=== PATIENT | female | born 1975 | race Two or more races ===

== ENCOUNTER 2024-04-26 10:15 | Inpatient (IN) | payer OTHER ==
[~2024-04-26] VITALS: Ht 154.9 cm; Wt 65.8 kg
[2024-04-27] MEDS ORDERED: SYNTHROID125 MCG PO (11:26)
[2024-04-27] MEDS ORDERED: EFFEXOR XR37.5 MG PO (11:27)
[2024-04-27] MEDS ORDERED: AVAPRO150 MG PO (11:28)
[2024-04-27] MEDS ORDERED: TOPROL XL25 M1 PO (11:28)
[2024-04-27] MEDS ORDERED: VIENVA-28 TABL1 EACH (11:29)
[2024-04-27 11:32] VITALS: BP 127/75
[2024-04-27 13:02] LABS: RH POSITIVE
[2024-05-03] MEDS ORDERED: METRONIDAZOLE/SODIUM CHLORIDE 500 MG/100 ML PIGGYBACK IV ONE (10:30)
[2024-05-03] MEDS ORDERED: BUPIVACAINE HCL 30 ML VIAL IJ ONE (10:30)
[2024-05-03] MEDS ORDERED: THROMBIN,HU/FIBRINOGEN/CALCIUM 10 ML SYRINGE TOP ONE (10:30)
[2024-05-03] MEDS ORDERED: VISTASEAL DUAL APPICATOR 1 EACH APPL TOP ONE (10:30)
[2024-05-03] MEDS ORDERED: CEFTRIAXONE SODIUM 2,000 MG VIAL IV ONE (10:30)
[2024-05-03] MEDS ORDERED: LIDOCAINE HCL 1% 20 ML VIAL IJ ONE (10:30)
[2024-05-03] MEDS ORDERED: POVIDONE-IODINE 118 ML BOTT TOP ONE (10:30)
[2024-05-03] MEDS ORDERED: SUGAMMADEX SODIUM 200 MG/2 ML VIAL IV ONE (12:15)
[2024-05-03] MEDS ORDERED: RINGERS SOLUTION,LACTATED 1,000 ML IV SCH (12:45)
[2024-05-03] MEDS ORDERED: OxyCODONE HCL 5 MG TABLET (ROXICODONE) PO PRN (12:45)
[2024-05-03] MEDS ORDERED: ONDANSETRON HCL 2 MG/ML VIAL IV PRN (12:45)
[2024-05-03] MEDS ORDERED: MORPHINE SULFATE 4 MG/ML CARTRIDGE IV PRN (12:45)
[2024-05-03] MEDS ORDERED: MORPHINE SULFATE 4 MG/ML VIAL IV ONE (13:00)
[2024-05-03] MEDS ORDERED: HYOSCYAMINE SULFATE 0.125 MG TAB.SUBL SL SCH (13:00)
[2024-05-03] MEDS ORDERED: ACETAMINOPHEN 500 MG GEL..CAP PO SCH (14:00)
[2024-05-03 14:24] LABS: HEMATOCRIT 33.8 % (36.0-45.00); HEMOGLOBIN 12.1 g/dL (12.0-15.00); MEAN CELL VOLUME 91.7 fL (80.00-100.00); MEAN CORPUSCULAR HEMOGLOBIN 32.8 pg (27.00-32.0); MEAN CORPUSCULAR HGB CONC 35.8 g/dl (32.0-36.0); PLATELET COUNT 215 K/uL (150-450); RED BLOOD COUNT 3.69 M/uL (4.00-6.00); RED CELL DISTRIBUTION WIDTH 12.9 % (11.5-14.5)
[2024-05-03 16:40] VITALS: BP 127/75; O2SAT 99
[2024-05-03] MEDS ORDERED: POLYETHYLENE GLYCOL 3350 17 GM BLIST.PACK PO SCH (17:00)
[2024-05-03] MEDS ORDERED: METOCLOPRAMIDE HCL 5 MG/ML VIAL IV SCH (17:00)
[2024-05-03] MEDS ORDERED: GABAPENTIN 300 MG CAPSULE PO SCH (17:00)
[2024-05-03] MEDS ORDERED: FAMOTIDINE/PF 20 MG/2 ML VIAL IV PUSH SCH (21:00)
[2024-05-03] MEDS ORDERED: CELECOXIB 200 MG CAPSULE PO SCH (21:00)
[2024-05-04 01:07] VITALS: BP 117/76
[2024-05-04] MEDS ORDERED: LEVOTHYROXINE SODIUM 125 MCG TABLET PO SCH (06:00)
[2024-05-04 06:52] LABS: HEMATOCRIT 31.8 % (36.0-45.00); HEMOGLOBIN 11.1 g/dL (12.0-15.00); MEAN CORPUSCULAR HEMOGLOBIN 32.4 pg (27.00-32.0); MEAN CORPUSCULAR HGB CONC 34.9 g/dl (32.0-36.0); PLATELET COUNT 177 K/uL (150-450); RED BLOOD COUNT 3.42 M/uL (4.00-6.00); RED CELL DISTRIBUTION WIDTH 12.8 % (11.5-14.5)
[2024-05-04 07:24] LABS: ALBUMIN 2.9 gm/dL (3.4-5.0); CREATININE SERUM 0.76 mg/dL (0.55-1.02); GFR 80.88; MAGNESIUM 2.1 mg/dL (1.8-2.4); POTASSIUM 3.87 mEq/L (3.5-5.1)
[2024-05-04] MEDS ORDERED: IRBESARTAN 150 MG TABLET PO SCH (09:00)
[2024-05-04] MEDS ORDERED: METOPROLOL SUCCINATE 25 MG TAB.SR.24H PO SCH (09:00)
[2024-05-04] MEDS ORDERED: LACTOBACILLUS ACIDOPHILUS 1 CAP CAP PO SCH (09:00)
[2024-05-04 10:07] VITALS: BP 145/85
[2024-05-04 16:09] VITALS: BP 113/78
[2024-05-04] MEDS ORDERED: ENOXAPARIN SODIUM 40 MG/0.4 ML SYRINGE SUBCUTANEO SCH (17:00)
[2024-05-04] MEDS ORDERED: SIMETHICONE 125 MG CAPSULE PO SCH (18:12)
[2024-05-05 01:22] VITALS: BP 106/64; O2SAT 96
[2024-05-05 08:00] VITALS: BP 140/87
[2024-05-05] MEDS ORDERED: ENOXAPARIN SODIUM 40 MG/0.4 ML SYRINGE SUBCUTANEO SCH (09:00)
== END 2024-05-05 09:36 | disposition home or self-care (01) | DRG 743 ==
LOC: O/R 05-03 05:00 → OB/GYN 05-03 05:00 → SURH 05-03 08:30 → OB/GYN 05-03 13:26
PROVIDERS: Surgery; Urology; ADMIT Obstetrics & Gynecology Gynecology; ATTEND Obstetrics & Gynecology Gynecology
PROC: 0DNW4ZZ Release Peritoneum, Percutaneous Endoscopic Approach (ICD-10-PCS; 2024-05-03)
PROC: 0TN64ZZ Release Right Ureter, Percutaneous Endoscopic Approach (ICD-10-PCS; 2024-05-03)
PROC: 0T788DZ Dilation of Bilateral Ureters with Intraluminal Device, Via Natural or Artificial Opening Endoscopic (ICD-10-PCS; 2024-05-03)
PROC: 0TN78ZZ Release Left Ureter, Via Natural or Artificial Opening Endoscopic (ICD-10-PCS; 2024-05-03)
PROC: 0DN84ZZ Release Small Intestine, Percutaneous Endoscopic Approach (ICD-10-PCS; 2024-05-03)
PROC: 0UT94ZZ Resection of Uterus, Percutaneous Endoscopic Approach (ICD-10-PCS; principal; 2024-05-03 08:30)
PROC: 0UT74ZZ Resection of Bilateral Fallopian Tubes, Percutaneous Endoscopic Approach (ICD-10-PCS; 2024-05-03 08:30)
PROC: 0UT14ZZ Resection of Left Ovary, Percutaneous Endoscopic Approach (ICD-10-PCS; 2024-05-03 08:30)
DX: D25.1 Intramural leiomyoma of uterus (principal); N80.122 Deep endometriosis of left ovary; N94.5 Secondary dysmenorrhea; R10.32 Left lower quadrant pain; N94.6 Dysmenorrhea, unspecified; N80.00 Endometriosis of the uterus, unspecified; K66.0 Peritoneal adhesions (postprocedural) (postinfection); N72 Inflammatory disease of cervix uteri; N80.329 Endometriosis of the posterior cul-de-sac, unspecified depth; N80.03 Adenomyosis of the uterus; Z20.822 Contact with and (suspected) exposure to COVID-19

== ENCOUNTER 2024-05-18 19:56 | Emergency (ER) | payer OTHER ==
[~2024-05-18] VITALS: Ht 154.9 cm; Wt 61.2 kg
[~2024-05-18 19:56] MED LIST: AVAPRO150 MG PO; EFFEXOR XR37.5 MG PO; SYNTHROID125 MCG PO; TOPROL XL25 M1 PO; VIENVA-28 TABL1 EACH
[2024-05-18] MEDS ORDERED: 0.9 % SODIUM CHLORIDE 1,000 ML IV STA (20:52)
[2024-05-18] MEDS ORDERED: KETOROLAC TROMETHAMINE 30 MG VIAL IV ONE (21:00)
[2024-05-18] MEDS ORDERED: FAMOTIDINE/PF 20 MG/2 ML VIAL IV ONE (21:00)
[2024-05-18] MEDS ORDERED: ONDANSETRON HCL 2 MG/ML VIAL IV ONE (21:00)
[2024-05-18 21:38] LABS: HEMATOCRIT 36.3 % (36.0-45.00); HEMOGLOBIN 12.7 g/dL (12.0-15.00); MEAN CELL VOLUME 91.3 fL (80.00-100.00); MEAN CORPUSCULAR HEMOGLOBIN 31.9 pg (27.00-32.0); PLATELET COUNT 246 K/uL (150-450); RED BLOOD COUNT 3.98 M/uL (4.00-6.00); RED CELL DISTRIBUTION WIDTH 12.9 % (11.5-14.5)
[2024-05-18 21:56] LABS: ALBUMIN 3.9 gm/dL (3.4-5.0); BILIRUBIN TOTAL 1.27 mg/dL (0.3-1.2); CALCIUM 9.1 mg/dL (8.5-10.1); CREATININE SERUM 0.85 mg/dL (0.55-1.02); GFR 71.08; GLOBULINA 3.3 G/DL (2.4-3.5); POTASSIUM 4.1 mEq/L (3.5-5.1); TOTAL PROTEIN 7.2 gm/dL (6.4-8.2)
[2024-05-18] MEDS ORDERED: 0.9 % SODIUM CHLORIDE 500 ML IV STA (22:04)
[2024-05-18] MEDS ORDERED: FAMOTIDINE/PF 20 MG/2 ML VIAL IV PUSH ONE (23:15)
== END 2024-05-18 23:34 | disposition home or self-care (01) ==
LOC: ER 19:58
PROVIDERS: Emergency Medicine
DX: K52.9 Noninfective gastroenteritis and colitis, unspecified (principal); K29.70 Gastritis, unspecified, without bleeding; E86.0 Dehydration; Z88.2 Allergy status to sulfonamides; Z20.822 Contact with and (suspected) exposure to COVID-19

== ENCOUNTER 2024-05-19 19:30 | Inpatient (IN) | payer OTHER ==
[~2024-05-19] VITALS: Ht 154.9 cm; Wt 61.2 kg
[2024-05-19] MEDS ORDERED: 0.9 % SODIUM CHLORIDE 1,000 ML IV STA (19:55)
[2024-05-19] MEDS ORDERED: CEFTRIAXONE SODIUM 2,000 MG VIAL IV ONE (20:00)
[2024-05-19] MEDS ORDERED: ACETAMINOPHEN 500 MG GEL..CAP PO ONE (20:00)
[2024-05-19 20:42] LABS: HEMATOCRIT 31.2 % (36.0-45.00); HEMOGLOBIN 10.8 g/dL (12.0-15.00); MEAN CELL VOLUME 91.1 fL (80.00-100.00); MEAN CORPUSCULAR HEMOGLOBIN 31.5 pg (27.00-32.0); MEAN CORPUSCULAR HGB CONC 34.5 g/dl (32.0-36.0); PLATELET COUNT 195 K/uL (150-450); RED BLOOD COUNT 3.43 M/uL (4.00-6.00); RED CELL DISTRIBUTION WIDTH 12.6 % (11.5-14.5)
[2024-05-19 20:44] LABS: PH,URINE 5.5 (5.0-8.0); URINE APPEARANCE Clear; URINE BILIRRUBIN Negative (NEGATIVE); URINE BLOOD Moderate; URINE COLOR Yellow; URINE GLUCOSE Negative (NEGATIVE); URINE KETONE 15 (NEGATIVE); URINE LEUKOCYTE Moderate; URINE NITRATE Negative; URINE PROTEIN Negative (NEGATIVE)
[2024-05-19 20:48] LABS: URINE BACTERIA 864.1 uL (0.0-1933); URINE EPITHELIAL CELLS 69.8 uL (0.0-38.8); URINE RBC 11.2 uL (0.0-20.8); URINE WBC 221.2 uL (0.0-23.2)
[2024-05-19 20:52] LABS: INR 1.13; PARTIAL THROMBOPLASTIN TIME 27.5 SECONDS (22.0-34.0); PROTHROMBIN TIME 12.2 SECONDS (9.0-11.5)
[2024-05-19 20:56] LABS: ALBUMIN 3.3 gm/dL (3.4-5.0); BILIRUBIN TOTAL 1.21 mg/dL (0.3-1.2); CALCIUM 8.5 mg/dL (8.5-10.1); CREATININE SERUM 0.73 mg/dL (0.55-1.02); GFR 84.73; GLOBULINA 2.9 G/DL (2.4-3.5); POTASSIUM 3.42 mEq/L (3.5-5.1); TOTAL PROTEIN 6.2 gm/dL (6.4-8.2)
[2024-05-19 21:14] LABS: URINE CAST 0.15 uL (0.0-1.40); URINE MUCUS SCANT
[2024-05-19] MEDS ORDERED: CEFTRIAXONE SODIUM 2,000 MG in 0.9 % SODIUM CHLORIDE 100 ML IV SCH (23:06)
[2024-05-19] MEDS ORDERED: PANTOPRAZOLE SODIUM 40 MG/VIAL VIAL IV SCH (23:06)
[2024-05-19] MEDS ORDERED: IRBESARTAN 150 MG TABLET PO SCH (23:09)
[2024-05-19] MEDS ORDERED: METOPROLOL TARTRATE 25 MG TABLET PO SCH (23:09)
[2024-05-19] MEDS ORDERED: 0.9 % SODIUM CHLORIDE 1,000 ML IV SCH (23:15)
[2024-05-19] MEDS ORDERED: ONDANSETRON HCL 4 MG in 0.9 % SODIUM CHLORIDE 50 ML IV PRN (23:15)
[2024-05-19] MEDS ORDERED: ACETAMINOPHEN 500 MG GEL..CAP PO PRN (23:15)
[2024-05-20] MEDS ORDERED: LEVOTHYROXINE SODIUM 125 MCG TABLET PO SCH (06:00)
[2024-05-20 08:10] VITALS: BP 164/70; O2SAT 93
[2024-05-20 18:54] VITALS: BP 140/88
[2024-05-20] MEDS ORDERED: SIMETHICONE 125 MG CAPSULE PO SCH (21:00)
[2024-05-20] MEDS ORDERED: FAMOtidine 10 MG/ML (4ML VIAL) IV SCH (21:00)
[2024-05-21 02:24] VITALS: BP 115/79; O2SAT 97
[2024-05-21 07:30] LABS: ALBUMIN 3.1 gm/dL (3.4-5.0); BILIRUBIN TOTAL 0.51 mg/dL (0.3-1.2); CALCIUM 8.5 mg/dL (8.5-10.1); CREATININE SERUM 0.59 mg/dL (0.55-1.02); GFR 108.33; GLOBULINA 2.7 G/DL (2.4-3.5); MAGNESIUM 1.9 mg/dL (1.8-2.4); PHOSPHOROUS 3.4 mg/dL (2.5-4.9); POTASSIUM 3.45 mEq/L (3.5-5.1); TOTAL PROTEIN 5.8 gm/dL (6.4-8.2)
[2024-05-21 07:35] LABS: HEMATOCRIT 28.5 % (36.0-45.00); HEMOGLOBIN 10.5 g/dL (12.0-15.00); MEAN CORPUSCULAR HEMOGLOBIN 32.7 pg (27.00-32.0); MEAN CORPUSCULAR HGB CONC 36.7 g/dl (32.0-36.0); PLATELET COUNT 185 K/uL (150-450); RED BLOOD COUNT 3.21 M/uL (4.00-6.00); RED CELL DISTRIBUTION WIDTH 12.3 % (11.5-14.5)
[2024-05-21 07:46] LABS: C-REACTIVE PROTEIN 1.29 MG/DL (0.00-0.29)
[2024-05-21 08:41] VITALS: BP 112/73; O2SAT 98
[2024-05-21 11:11] LABS: FECAL LEUKOCYTES NEGATIVE (NEGATIVE)
[2024-05-21 11:12] LABS: ob POSITIVE (NEGATIVE)
[2024-05-21 17:11] VITALS: BP 117/72
[2024-05-21] MEDS ORDERED: FAMOTIDINE/PF 20 MG/2 ML VIAL IV SCH (21:00)
[2024-05-22 02:11] VITALS: BP 117/72; O2SAT 95
[2024-05-22 08:06] VITALS: BP 144/88
[2024-05-22 15:38] LABS: URINE APPEARANCE Clear; URINE BILIRRUBIN Negative (NEGATIVE); URINE BLOOD Trace; URINE COLOR Yellow; URINE GLUCOSE Negative (NEGATIVE); URINE KETONE Negative (NEGATIVE); URINE LEUKOCYTE Negative; URINE NITRATE Negative; URINE PROTEIN Negative (NEGATIVE); URINE UROBILINOGEN 0.2 E.U./dl
[2024-05-22 15:42] LABS: URINE BACTERIA 6.2 uL (0.0-1933); URINE RBC 5.4 uL (0.0-20.8)
== END 2024-05-22 15:37 | disposition home or self-care (01) | DRG 392 ==
LOC: ER 19:32 → MEDI 23:40 → OB/GYN 23:40 → MEDI 05-20 01:49
PROVIDERS: Emergency Medicine; Internal Medicine Infectious Disease; Surgery; ADMIT Internal Medicine; ATTEND Internal Medicine
PROC: BW21YZZ Computerized Tomography (CT Scan) of Abdomen and Pelvis using Other Contrast (ICD-10-PCS; principal; 2024-05-19)
DX: K52.9 Noninfective gastroenteritis and colitis, unspecified (principal); R65.10 Systemic inflammatory response syndrome (SIRS) of non-infectious origin without acute organ dysfunction; N39.0 Urinary tract infection, site not specified; E86.0 Dehydration; E87.6 Hypokalemia; E03.9 Hypothyroidism, unspecified; Z88.2 Allergy status to sulfonamides; Z90.710 Acquired absence of both cervix and uterus